=== PATIENT | male | born 1975 | race Caucasian/White ===

== ENCOUNTER 2022-05-10 13:36 | Outpatient (CLI) | payer BC, SELFPAY ==
--- NOTE | ~2022-05-10 | US_ITS ---
US venous doppler [facility] DATE: 05/10/2022 14:30 INDICATION: Left lower leg swelling TECHNIQUE: Real-time and color flow imaging and Doppler analysis of the veins of the left lower extre mity COMPARISON: None FINDINGS: The left greater saphenous vein is patent. There is spontaneous and phasic flow and normal augmentation and color flow signal and normal compression of the deep veins of the left leg. Incidentally noted is some left inguinal lymph nodes measuring up to 1 x 1.9 cm. IMPRESSION: No evidence of deep venous thrombosis of left leg Reviewed, dictated and finalized at [facility]. Reviewed, dictated and finalized at [facility].
== END 2022-05-10 13:37 | disposition home or self-care (01) ==
LOC: ANHIMG 13:42
PROVIDERS: PCP Physician Assistant; Visit Provider Physician Assistant
DX: R60.0 Localized edema (principal)
CPT/HCPCS: 93971